=== PATIENT | female | born 1995 | race Caucasian/White ===

== ENCOUNTER 2024-06-06 13:44 | Outpatient (AMB) | payer OTHER, SELFPAY ==
--- NOTE | 2024-06-06 13:47 | MHC.OFFVIS ---
Vital Signs 06/06/24 13:49 Height 5 ft 4 in Weight 156 lb BMI 26.8 Handedness Right Intake Visit Reasons: New Pt - Right Index Finger Paronychia Intake Note: Kortney is a 28 year old right hand dominant female who presents today as a new patient for evaluation of her right index finger paronychia. Patient reports her cat scratched her right index finger on 05/31/24. Patient reports pain when she bends her finger. Allergies peach Allergy (Severe, Verified 06/06/24 13:55) lip swelling HPI HPI New Pt - Right Index Finger Paronychia: Details: Kortney is a 28 year old right hand dominant female who presents today as a new patient for evaluation of her right index finger paronychia. Patient reports her cat scratched her right index finger on 05/31/24. Patient denies any ongoing erythema at this time. Patient reports pain when she bends her finger. Denies numbness or tingling in the right hand. No other acute complaints or concerns at this time. [facility] Social History (Updated 06/06/24 @ 13:52 by KETURAH Reese) Current occupational status: employed Current occupation: right hand dominant Physical Exam Vital Signs: BMI result Body Mass Index 26.8 Extrem Other: Patient is alert, oriented, and in no acute distress. Neuro: Normal sensation of the tips of all digits of the right hand at this time Vascular: Cap refill brisk Pain: Patient reports some very mild tenderness to palpation about the distal aspect of the right index finger ROM: Patient was able to make a closed fist and extend all digits of the right hand fully, but reports some discomfort when doing so Skin: No lacerations or abrasions. General: Mild edema noted of the distal aspect of the right index finger No ecchymosis, erythema, or evidence of infection. Psych: Appears grossly normal Affect normal Attitude cooperative Assessment & Plan Assessment & Plan (1) Cat scratch of hand: Code(s): S60.519A - Abrasion of unspecified hand, initial encounter; W55.03XA - Scratched by cat, initial encounter Category: Medical Plan 1. Cat scratch of right index finger No evidence of ongoing infection Patient is educated about this condition Patient was educated about the typical recovery course At this time, patient was informed that I have no concerns for ongoing infection, and I do not feel antibiotics are necessary Patient was educated to rest, ice, elevate finger Patient was educated to return to our office any worsening signs or symptoms of infection Patient was amenable to this plan Patient will follow-up as needed with any acute concerns Coding Level of Care Code New Pt Level 3 (58272) Diagnoses Cat scratch of hand S60.519A; W55.03XA
[2024-06-06 13:49] VITALS: BMI 26.8
--- OUTSIDE RECORDS SUMMARY | 2024-06-06 16:24 | XMS_ITS | Patient Health Record ---
Author Organization [facility] Address [address] [place] [address] Care Team Providers Care Psychology Tech Name Role Phone FRANCESCO KNOWLES Primary Care Provider BAILEE Qureshi Unavailable [phone] Allergies Allergen (clinical drug ingredient) Drug/Non Drug Allergy documented on EMR Reaction Allergy Type Onset Date Status almond allergenic extract [place] (Diagnostic) throat swells Drug Allergy Active Reason For Referral No Information Medications Medication SIG (Take, Route, Frequency, Duration) Notes Start Date End Date Status Azithromycin 500 MG 2 tablets Orally onc e for 1 days 10/13/2018 Not-Taking Levonorgest-Eth Estrad 91-Day 0.1-0.02 & 0.01 MG 1 tablet Orally Once a day for 84 days 10/12/2018 Not-Taking Aviane 0.1-20 MG-MCG 1 tablet Orally Onc e a day for 90 days 05/31/2017 Not-Taking Social History Tobacco Use: Social History Observation Description Date Details (start date - stop date) Never Smoker NA - NA Tobacco Use/Smoking Question Answer Notes Are you a nonsmoker Alcohol Screen (Audit-C) Question Answer Notes Did you have a drink contain ing alcohol in the past year? Yes How often did you have a dri nk containing alcohol in the past year? 2 to 4 times a month (2 points) How many drinks did you have on a typical day when you were drinking in the past year? 1 or 2 drinks (0 point) How often did you have 6 or more drinks on one occasion in the past year? Never (0 point) Points 2 Interpretation Negative Tobacco use other than smoking: Question Answer Notes Are you an other tobacco user? No Problems Problem Type SNOMED Code ICD Code Onset Dates Problem Status W/U Status Risk Notes Problem Subacute and chronic vaginitis (N76.1) Active confirmed Plan Of Treatment Pending Test Test Name Order Date ONE SWAB 05/31/2017 ONE SWAB 08/02/2017 ANTI-HEPATITIS C 02/13/2020 HEP. B SURF. AG 02/13/2020 SYPHILIS TESTING 02/13/2020 HIV AB-AG 4TH GENERATION 02/13/2020 Insurance Providers Payer Name Payer Address Payer Phone Subscriber Number Group Number Insured Name Patient Relationship to Insured Coverage Start Date Coverage End Date [facility] [address] [address] [place] [address] [id number] JIMI MUNOZ Self - patient is the insured Medical (General) History Medical History History ICD Code Subacute and chronic vaginitis N76.1 Surgical History Surgery Date(Month/Year) TONSILLECTOMY 11/2016 [place] Teeth removed 04/2021 Ear tubes 2000 Adenoidectomy 2000
--- OUTSIDE RECORDS SUMMARY | 2024-06-06 16:24 | XMS_ITS | Data Portability ---
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 Plan of Treatment Reminders Order Date Submit Date Provider Last Modified By Organization Details Last Modified Time Details Appointments None recorded. Lab CBC w/ auto diff 2024 025 OBINNA [facility], [address], [address], 5 10:05:36 ferritin, serum or plasma 2024 025 OBINNA [facility], [address], [address], 5 10:05:40 iron + total iron-bindin g capacity (TIBC), serum 2024 025 OBINNA [facility], [address], [address], 5 10:05:38 TSH, ultra-sensi tive, serum 2024 025 OBINNA [facility], [address], [address], 5 10:05:39 lipid panel, serum 2024 025 OBINNA [facility], [address], [place], [address], 5 10:05:38 CMP, serum or plasma 2024 025 OBINNA [facility], [address], [place], [address], 5 10:05:37 CBC w/ auto diff 2021 022 OBINNA [facility] (Centralized Electronic Ordering - All Locations), Patient Can Go To The Location Of Their Choice, [id number] 16:06:42 amylase, serum or plasma 2020 021 OBINNA [facility] (Centralized Electronic Ordering - All Locations), Patient Can Go To The Location Of Their Choice, 20:10:37 CBC w/ auto diff 2020 021 OBINNA [facility] (Centralized Electronic Ordering - All Locations), Patient Can Go To The Location Of Their Choice, 19:49:41 CMP, serum or plasma 2020 021 OBINNA [facility] (Centralized Electronic Ordering - All Locations), Patient Can Go To The Location Of Their Choice, [id number] 20:10:39 Referral gynecologis t referral 2024 025 [email or web address] Not available 5 08:56:37 gastroenter ologist referral - recurrent nausea and vomitting with fatty foods. NO abd pain. 2020 021 [email or web address] Phil Gaona, [address] , [place], [address], 09:46:25 Procedures None recorded. Surgeries None recorded. Imaging None recorded. Medication Orders None recorded. Patient TargetsNo targets recorded. Patient Instructions Encounter Date Encounter Id Patient Instructions Last Modified By Organization Details Last Modified Time 12/01/2021 [id number] gastroesophageal reflux disease (GERD): care instructions Not available 12/01/2021 10:48:07 04/10/2024 [id number] heavy menstrual periods: care instructions Not available 04/10/2024 15:57:11 gastroesophageal reflux disease (GERD): care instructions Not available 04/10/2024 15:49:08 GERD diet education Not availa ble 04/10/2024 15:52:48 acid reflux diet Not available 04/10/2024 15:52:48 When You Want to Lose Weight: Care Instructions Not available 04/10/2024 15:47:58 Reason for Referral Student Advisor Referral for Nausea and vomiting recurrent nausea and vomitting with fatty foods. NO abd pain. Referring Physician: Deana Amaral, Internal Medicine, Encounter Date: 04/08/2020 Health Assistant Referral for Sc reening for malignant neoplasm of cervix Referring Physician: Deana Amaral, Internal Medicine, Encounter Date: 04/10/2024 Results Created Date Observation Date Name Description Value Unit Range Abnormal Flag Note LastModifiedBy Organization Detail LastModifiedTime 04/29/1904/29/2020 CBC w/ auto diff WBC 10.5 K/mm3 (4.0-1 1.0) Not Available [facility] (Centralized Electronic Ordering - All Locations) Patient Can Go To The Location Of Their Choice, [id number] 04/29/2020 19:49:41 04/29/1904/29/2020 CBC w/ auto diff RBC 5.05 M/mm3 (4.20- 5.40) Not Available [facility] (Centralized Electronic Ordering - All Locations) Patient Can Go To The Location Of Their Choice, [id number] 04/29/2020 19:49:41 04/29/1904/29/2020 CBC w/ auto diff HGB 14.9 gm/dL (11.7- 15.5) Not Available [facility] (Centralized Electronic Ordering - All Locations) Patient Can Go To The Location Of Their Choice, [id number] 04/29/2020 19:49:41 04/29/1904/29/2020 CBC w/ auto diff HCT 45.1 % (35.7- 45.8) Not Available [facility] (Centralized Electronic Ordering - All Locations) Patient Can Go To The Location Of Their Choice, 04/29/2020 19:49:41 04/29/1904/29/2020 CBC w/ auto diff MCV 89.3 fL (80.0- 100.0) Not Available [facility] (Centralized Electronic Ordering - All Locations) Patient Can Go To The Location Of Their Choice, 04/29/2020 19:49:41 04/29/1904/29/2020 CBC w/ auto diff MCH 29.5 pg (27.0- 34.0) Not Available [facility] (Centralized Electronic Ordering - All Locations) Patient Can Go To The Location Of Their Choice, 04/29/2020 19:49:41 04/29/1904/29/2020 CBC w/ auto diff MCHC 33.0 g/dL (33.0- 37.0) Not Available [facility] (Centralized Electronic Ordering - All Locations) Patient Can Go To The Location Of Their Choice, 04/29/2020 19:49:41 04/29/1904/29/2020 CBC w/ auto diff plt 264 K/mm3 (150-4 60) Not Available [facility] (Centralized Electronic Ordering - All Locations) Patient Can Go To The Location Of Their Choice, 04/29/2020 19:49:41 04/29/1904/29/2020 CBC w/ auto diff RDW-SD 36.3 fL (<47.0 ) Not Available [facility] (Centralized Electronic Ordering - All Locations) Patient Can Go To The Location Of Their Choice, 04/29/2020 19:49:41 04/29/1904/29/2020 CBC w/ auto diff MPV 11.0 fL (9.4-1 2.4) Not Available [facility] (Centralized Electronic Ordering - All Locations) Patient Can Go To The Location Of Their Choice, 04/29/2020 19:49:41 04/29/1904/29/2020 CBC w/ auto diff automated NRBC 0.0 #/100 _WBC' s Not Available [facility] (Centralized Electronic Ordering - All Locations) Patient Can Go To The Location Of Their Choice, 04/29/2020 19:49:41 04/29/1904/29/2020 CBC w/ auto diff abs. NRBC 0.0 K/mm3 Not Available [facility] (Centralized Electronic Ordering - All Locations) Patient Can Go To The Location Of Their Choice, 04/29/2020 19:49:41 04/29/1904/29/2020 CBC w/ auto diff neut # 7.0 K/mm3 (1.3-7 .0) Not Available [facility] (Centralized Electronic Ordering - All Locations) Patient Can Go To The Location Of Their Choice, 04/29/2020 19:49:41 04/29/1904/29/2020 CBC w/ auto diff lymph # 2.7 K/mm3 (0.8-3 .1) Not Available [facility] (Centralized Electronic Ordering - All Locations) Patient Can Go To The Location Of Their Choice, 04/29/2020 19:49:41 04/29/1904/29/2020 CBC w/ auto diff mono# 0.5 K/mm3 (0.4-0 .9) Not Available [facility] (Centralized Electronic Ordering - All Locations) Patient Can Go To The Location Of Their Choice, 04/29/2020 19:49:41 04/29/1904/29/2020 CBC w/ auto diff eo # 0.2 K/mm3 (0.0-0 .4) Not Available [facility] (Centralized Electronic Ordering - All Locations) Patient Can Go To The Location Of Their Choice, 04/29/2020 19:49:41 04/29/1904/29/2020 CBC w/ auto diff baso # 0.1 K/mm3 (0.0-0 .1) Not Available [facility] (Centralized Electronic Ordering - All Locations) Patient Can Go To The Location Of Their Choice, 04/29/2020 19:49:41 04/29/1904/29/2020 CBC w/ auto diff abs. imm gran 0.0 K/mm3 Not Available [facility] ([facility] Ordering - All Locations) Patient Can Go To The Location Of Their Choice, 04/29/2020 19:49:41 04/29/1904/29/2020 CBC w/ auto diff neut 66.8 % (44-76 ) Not Available [facility] (Centralized Electronic Ordering - All Locations) Patient Can Go To The Location Of Their Choice, 04/29/2020 19:49:41 04/29/1904/29/2020 CBC w/ auto diff lymph 25.5 % (15-43 ) Not Available [facility] (Centralized Electronic Ordering - All Locations) Patient Can Go To The Location Of Their Choice, 04/29/2020 19:49:41 04/29/1904/29/2020 CBC w/ auto diff monocyte 5.0 % (4.5-1 0.5) Not Available [facility] (Centralized Electronic Ordering - All Locations) Patient Can Go To The Location Of Their Choice, 04/29/2020 19:49:41 04/29/1904/29/2020 CBC w/ auto diff eo 1.7 % (0-6) Not Available [facility] (Centralized Electronic Ordering - All Locations) Patient Can Go To The Location Of Their Choice, 04/29/2020 19:49:41 04/29/1904/29/2020 CBC w/ auto diff baso 0.7 % (0-2) Not Available [facility] (Centralized Electronic Ordering - All Locations) Patient Can Go To The Location Of Their Choice, 04/29/2020 19:49:41 04/29/1904/29/2020 CBC w/ auto diff imm gran 0.3 % Not Available [facility] (Centralized Electronic Ordering - All Locations) Patient Can Go To The Location Of Their Choice, 04/29/2020 19:49:41 04/29/1904/29/2020 amyla se, serum or plasm a amylase 70 U/L (28-10 0) Not Available [facility] (Centralized Electronic Ordering - All Locations) Patient Can Go To The Location Of Their Choice, 04/29/2020 20:10:37 04/29/1904/29/2020 CMP, serum or plasm a glucose 92 mg/dL (70-99 ) Not Available [facility] (Centralized Electronic Ordering - All Locations) Patient Can Go To The Location Of Their Choice, 04/29/2020 20:10:38 04/29/1904/29/2020 CMP, serum or plasm a BUN 9 mg/dL (6-20) Not Available [facility] (Centralized Electronic Ordering - All Locations) Patient Can Go To The Location Of Their Choice, 04/29/2020 20:10:38 04/29/1904/29/2020 CMP, serum or plasm a creatinine 0.9 mg/dL (0.5-1 .0) Not Available [facility] (Centralized Electronic Ordering - All Locations) Patient Can Go To The Location Of Their Choice, 04/29/2020 20:10:38 04/29/1904/29/2020 CMP, serum or plasm a sodium 139 mmol/ L (133-1 45) Not Available [facility] (Centralized Electronic Ordering - All Locations) Patient Can Go To The Location Of Their Choice, 04/29/2020 20:10:38 04/29/1904/29/2020 CMP, serum or plasm a potassium 4.3 mmol/ L (3.6-5 .2) Not Available [facility] (Centralized Electronic Ordering - All Locations) Patient Can Go To The Location Of Their Choice, 04/29/2020 20:10:38 04/29/1904/29/2020 CMP, serum or plasm a chloride 103 mmol/ L (98-10 7) Not Available [facility] (Centralized Electronic Ordering - All Locations) Patient Can Go To The Location Of Their Choice, 04/29/2020 20:10:38 04/29/1904/29/2020 CMP, serum or plasm a bicarbonate 27 mmol/ L (22-29 ) Not Available [facility] (Centralized Electronic Ordering - All Locations) Patient Can Go To The Location Of Their Choice, 04/29/2020 20:10:38 04/29/1904/29/2020 CMP, serum or plasm a anion gap 9 (4-17) Not Available [facility] (Centralized Electronic Ordering - All Locations) Patient Can Go To The Location Of Their Choice, 04/29/2020 20:10:38 04/29/1904/29/2020 CMP, serum or plasm a albumin 4.5 gm/dL (3.4-4 .8) Not Available [facility] (Centralized Electronic Ordering - All Locations) Patient Can Go To The Location Of Their Choice, 04/29/2020 20:10:38 04/29/1904/29/2020 CMP, serum or plasm a calcium 9.4 mg/dL (8.6-1 0.5) Not Available [facility] (Centralized Electronic Ordering - All Locations) Patient Can Go To The Location Of Their Choice, 04/29/2020 20:10:38 04/29/19 21 04/29/2020 CMP, serum or plasm a bilirubin,to peyton 0.4 mg/dL (0-1.2 ) Not Available [facility] (Centralized Electronic Ordering - All Locations) Patient Can Go To The Location Of Their Choice, 04/29/2020 20:10:38 04/29/1904/29/2020 CMP, serum or plasm a total protein 7.4 gm/dL (6.2-8 .2) Not Available [facility] (Centralized Electronic Ordering - All Locations) Patient Can Go To The Location Of Their Choice, 04/29/2020 20:10:38 04/29/1904/29/2020 CMP, serum or plasm a Ag ratio 1.6 Not Available [facility] (Centralized Electronic Ordering - All Locations) Patient Can Go To The Location Of Their Choice, 04/29/2020 20:10:38 04/29/1904/29/2020 CMP, serum or plasm a AST 19 U/L (0-32) Not Available [facility] (Centralized Electronic Ordering - All Locations) Patient Can Go To The Location Of Their Choice, 04/29/2020 20:10:38 04/29/1904/29/2020 CMP, serum or plasm a alk phos 70 U/L (35-10 4) Not Available [facility] (Centralized Electronic Ordering - All Locations) Patient Can Go To The Location Of Their Choice, 04/29/2020 20:10:38 04/29/1904/29/2020 CMP, serum or plasm a ALT 26 U/L (0-33) Not Available [facility] (Centralized Electronic Ordering - All Locations) Patient Can Go To The Location Of Their Choice, 04/29/2020 20:10:38 04/29/1904/29/2020 CMP, serum or plasm a est GFR non 91 mL/mi n/1.7 3_M2 Creat inine based estim ated glome rular filtr ation rate (eGFR ) is calcu lated using the Chron ic Kidne y Disea se Epide miolo gy Colla borat ion (CKD- EPI). The CKD-E PI creat inine equat ion has not been valid ated in child gene (<18 years ), pregn ant women or in some racia l or ethni c subgr oups other than Cauca sians and Afric an Ameri cans. Not Available [facility] (Centralized Electronic Ordering - All Locations) Patient Can Go To The Location Of Their Choice, 04/29/2020 20:10:38 04/29/19 21 04/29/2020 CMP, serum or plasm a est GFR 105 mL/mi n/1.7 3_M2 Creat inine based estim ated glome rular filtr ation rate (eGFR ) is calcu lated using the Chron ic Kidne y Disea se Epide miolo gy Colla borat ion (CKD- EPI). The CKD-E PI creat inine equat ion has not been valid ated in child gene (<18 years ), pregn ant women or in some racia l or ethni c subgr oups other than Cauca sians and Afric an Ameri cans. Not Available [facility] (Centralized Electronic Ordering - All Locations) Patient Can Go To The Location Of Their Choice, 04/29/2020 20:10:38 12/02/19 22 12/01/2021 COMPL ETE CBC WITH DIFF WBC 6.1 K/mm3 (4.0-1 1.0) Not Available [facility] (Centralized Electronic Ordering - All Locations) Patient Can Go To The Location Of Their Choice, 12/01/2021 16:06:42 12/02/19 22 12/01/2021 COMPL ETE CBC WITH DIFF RBC 4.54 M/mm3 (4.20- 5.40) Not Available [facility] (Centralized Electronic Ordering - All Locations) Patient Can Go To The Location Of Their Choice, 12/01/2021 16:06:42 12/02/19 22 12/01/2021 COMPL ETE CBC WITH DIFF HGB 13.7 gm/dL (11.7- 15.5) Not Available [facility] (Centralized Electronic Ordering - All Locations) Patient Can Go To The Location Of Their Choice, 12/01/2021 16:06:42 12/02/1912/01/2021 COMPL ETE CBC WITH DIFF HCT 41.0 % (35.7- 45.8) Not Available [facility] (Centralized Electronic Ordering - All Locations) Patient Can Go To The Location Of Their Choice, 12/01/2021 16:06:42 12/02/19 22 12/01/2021 COMPL ETE CBC WITH DIFF MCV 90.3 fL (80.0- 100.0) Not Available [facility] (Centralized Electronic Ordering - All Locations) Patient Can Go To The Location Of Their Choice, 12/01/2021 16:06:42 12/02/1912/01/2021 COMPL ETE CBC WITH DIFF MCH 30.2 pg (27.0- 34.0) Not Available [facility] (Centralized Electronic Ordering - All Locations) Patient Can Go To The Location Of Their Choice, 12/01/2021 16:06:42 12/02/19 22 12/01/2021 COMPL ETE CBC WITH DIFF MCHC 33.4 g/dL (33.0- 37.0) Not Available [facility] (Centralized Electronic Ordering - All Locations) Patient Can Go To The Location Of Their Choice, 12/01/2021 16:06:42 12/02/19 22 12/01/2021 COMPL ETE CBC WITH DIFF plt 297 K/mm3 (150-4 60) Not Available [facility] (Centralized Electronic Ordering - All Locations) Patient Can Go To The Location Of Their Choice, 12/01/2021 16:06:42 12/02/1912/01/2021 COMPL ETE CBC WITH DIFF RDW-SD 38.6 fL (<47.0 ) Not Available [facility] (Centralized Electronic Ordering - All Locations) Patient Can Go To The Location Of Their Choice, 12/01/2021 16:06:42 12/02/19 22 12/01/2021 COMPL ETE CBC WITH DIFF MPV 11.1 fL (9.4-1 2.4) Not Available [facility] (Centralized Electronic Ordering - All Locations) Patient Can Go To The Location Of Their Choice, 12/01/2021 16:06:42 12/02/19 22 12/01/2021 COMPL ETE CBC WITH DIFF automated NRBC 0.0 #/100 _WBC' s Not Available [facility] (Centralized Electronic Ordering - All Locations) Patient Can Go To The Location Of Their Choice, 12/01/2021 16:06:42 12/02/19 22 12/01/2021 COMPL ETE CBC WITH DIFF abs. NRBC 0.0 K/mm3 Not Available [facility] (Centralized Electronic Ordering - All Locations) Patient Can Go To The Location Of Their Choice, 12/01/2021 16:06:42 12/02/1912/01/2021 COMPL ETE CBC WITH DIFF neut # 3.3 K/mm3 (1.3-7 .0) Not Available [facility] (Centralized Electronic Ordering - All Locations) Patient Can Go To The Location Of Their Choice, 12/01/2021 16:06:42 12/02/19 22 12/01/2021 COMPL ETE CBC WITH DIFF lymph # 2.2 K/mm3 (0.8-3 .1) Not Available [facility] (Centralized Electronic Ordering - All Locations) Patient Can Go To The Location Of Their Choice, 12/01/2021 16:06:42 12/02/19 22 12/01/2021 COMPL ETE CBC WITH DIFF mono# 0.4 K/mm3 (0.4-0 .9) Not Available [facility] (Centralized Electronic Ordering - All Locations) Patient Can Go To The Location Of Their Choice, 12/01/2021 16:06:42 12/02/19 22 12/01/2021 COMPL ETE CBC WITH DIFF eo # 0.2 K/mm3 (0.0-0 .4) Not Available [facility] (Centralized Electronic Ordering - All Locations) Patient Can Go To The Location Of Their Choice, 12/01/2021 16:06:42 12/02/1912/01/2021 COMPL ETE CBC WITH DIFF baso # 0.0 K/mm3 (0.0-0 .1) Not Available [facility] (Centralized Electronic Ordering - All Locations) Patient Can Go To The Location Of Their Choice, 12/01/2021 16:06:42 12/02/19 22 12/01/2021 COMPL ETE CBC WITH DIFF abs. imm gran 0.0 K/mm3 Not Available [facility] ([facility] Order[facility] - All Locations) Patient Can Go To The Location Of Their Choice, 12/01/2021 16:06:42 12/02/19 22 12/01/2021 COMPL ETE CBC WITH DIFF neut 54.4 % (44-76 ) Not Available [facility] (Centralized Electronic Ordering - All Locations) Patient Can Go To The Location Of Their Choice, 12/01/2021 16:06:42 12/02/19 22 12/01/2021 COMPL ETE CBC WITH DIFF lymph 35.3 % (15-43 ) Not Available [facility] (Centralized Electronic Ordering - All Locations) Patient Can Go To The Location Of Their Choice, 12/01/2021 16:06:42 12/02/19 22 12/01/2021 COMPL ETE CBC WITH DIFF monocyte 6.6 % (4.5-1 0.5) Not Available [facility] (Centralized Electronic Ordering - All Locations) Patient Can Go To The Location Of Their Choice, 12/01/2021 16:06:42 12/02/19 22 12/01/2021 COMPL ETE CBC WITH DIFF eo 2.8 % (0-6) Not Available [facility] (Centralized Electronic Ordering - All Locations) Patient Can Go To The Location Of Their Choice, 12/01/2021 16:06:42 12/02/19 22 12/01/2021 COMPL ETE CBC WITH DIFF baso 0.7 % (0-2) Not Available [facility] (Centralized Electronic Ordering - All Locations) Patient Can Go To The Location Of Their Choice, 12/01/2021 16:06:42 12/02/19 22 12/01/2021 COMPL ETE CBC WITH DIFF imm gran 0.2 % Not Available [facility] (Centralized Electronic Ordering - All Locations) Patient Can Go To The Location Of Their Choice, 12/01/2021 16:06:42 12/02/19 22 12/02/2021 RUBEL LA IGG ANTIB CARRIE rubella IgG antibody POSIT HEAVEN Indic ates prior expos ure or immun ity. This test was perfo rmed by the [employer] VIDAS 3 immun oassa y syste m. Not Available [facility] (Centralized Electronic Ordering - All Locations) Patient Can Go To The Location Of Their Choice, 12/02/2021 08:08:45 12/02/19 22 12/02/2021 RUBEO LA AB IGG rubeola Ab IgG POSIT HEAVEN Indic ates prior expos ure or immun ity. This test was perfo rmed by the [employer] VIDAS 3 immun oassa y syste m. Not Available [facility] (Centralized Electronic Ordering - All Locations) Patient Can Go To The Location Of Their Choice, 12/02/2021 10:37:08 12/02/1912/02/2021 ANTI- HBS QUANT anti-hbs quant 46.19 mIU/m L >11.9 9 mIU/m L Indic ates prior expos ure or immun ity This test was perfo rmed on the [employer] immun oassa y syste m. Not Available [facility] (Centralized Electronic Ordering - All Locations) Patient Can Go To The Location Of Their Choice, [id number] 12/02/2021 11:01:27 12/02/1912/02/2021 MUMPS IGG ANTIB CARRIE mumps Ab IgG POSIT HEAVEN Indic ates prior expos ure or immun ity. This test was perfo rmed by the [employer] VIDAS 3 immun oassa y syste m. Not Available [facility] (Centralized Electronic Ordering - All Locations) Patient Can Go To The Location Of Their Choice, 12/02/2021 11:24:10 12/02/1912/02/2021 VARIC MINDI IGG ANTIB CARRIE varicella IgG antibody EQUIV OCAL Consi maya repea t testi ng on a fresh speci men in a recom david d inter kimani of 2 to 3 weeks . Patie nts with a repea t equiv ocal resul t shoul d be consi dered susce ptibl e unles s they have other evide nce of immun ity or subse quent testi ng indic ates immun ity. This test was perfo rmed by the [employer] VIDAS 3 immun oassa y syste m. Not Available [facility] (Centralized Electronic Ordering - All Locations) Patient Can Go To The Location Of Their Choice, 12/02/2021 14:41:02 12/02/1912/07/2021 QUANT IFERO N 1 TUBE qtb gold plus result NEGATI VE Refer ence range : NEGAT HEAVEN (NOTE ) Negat heaven test resul t. M. tuber culos is compl ex infec tion unlik usama. Not Available [facility] (Centralized Electronic Ordering - All Locations) Patient Can Go To The Location Of Their Choice, 12/07/2021 06:46:18 12/02/1912/07/2021 QUANT IFERO N 1 TUBE nil result 0.04 Unit: IU/mL Not Available [facility] (Centralized Electronic Ordering - All Locations) Patient Can Go To The Location Of Their Choice, 12/07/2021 06:46:18 12/02/19 22 12/07/2021 QUANT IFERO N 1 TUBE mitogen minus nil result >10.00 Unit: IU/mL Not Available [facility] (Centralized Electronic Ordering - All Locations) Patient Can Go To The Location Of Their Choice, 12/07/2021 06:46:18 12/02/1912/07/2021 QUANT IFERO N 1 TUBE TB1 Ag minus nil result 0.00 Unit: IU/mL Not Available [facility] (Centralized Electronic Ordering - All Locations) Patient Can Go To The Location Of Their Choice, 12/07/2021 06:46:18 12/02/1912/07/2021 QUANT IFERO N 1 TUBE TB2 Ag minus nil result 0.00 Unit: IU/mL (NOTE ) = The Nil tube value refle cts the backg round inter feron gamma immun e respo nse of the patie nt's blood sampl e. This value has been subtr acted from the patie nt's displ ayed TB and Mitog en resul ts. = Lower than expec siddharth resul ts with the Mitog en tube preve nt false -nega tive Quant ifero n readi ngs by detec ting a patie nt with a poten tial immun e suppr essiv e condi tion and/o r subop timal pre-a nalyt ical speci men handl ing. = The TB1 Antig en tube is coate d with the M. kalin rossios is-sp ecifi c antig ens desig nery to elici t respo nses from TB antig en prime d CD4+ helpe r T-lym phocy farzad. = The TB2 Antig en tube is coate d with the M. kalin rossios is-sp ecifi c antig ens desig nery to elici t respo nses from TB antig en prime d CD4+ helpe r and CD8+ cytot oxic T-lym phocy farzad. = For addit ional infor matio n, pleas e refer to https ://ed ucati on.qu Cost Effective Data/f aq/FA Q204 (This link is being provi ded for infor matio nal/ educa linda l purpo ses only. ) = Test Perfo rmed by: [employer], [address], [place]. [address] . Labor atory Direc tor: Troy machado MD. Not Available [facility] (Centralized Electronic Ordering - All Locations) Patient Can Go To The Location Of Their Choice, 12/07/2021 06:46:18 02/11/2002/13/2022 QUANT IFERO N 1 TUBE qtb gold plus result NEGATI VE Refer ence range : NEGAT HEAVEN (NOTE ) Negat heaven test resul t. M. kalin mccabe is compl ex infec tion unlik usama. Not Available [facility] (Centralized Electronic Ordering - All Locations) Patient Can Go To The Location Of Their Choice, 02/13/2022 22:07:10 02/11/20 22 02/13/2022 QUANT IFERO N 1 TUBE nil result 0.04 Unit: IU/mL Not Available [facility] (Centralized Electronic Ordering - All Locations) Patient Can Go To The Location Of Their Choice, 02/13/2022 22:07:10 02/11/20 22 02/13/2022 QUANT IFERO N 1 TUBE mitogen minus nil result >10.00 Unit: IU/mL Not Available [facility] (Centralized Electronic Ordering - All Locations) Patient Can Go To The Location Of Their Choice, [id number] 02/13/2022 22:07:10 02/11/20 22 02/13/2022 QUANT IFERO N 1 TUBE TB1 Ag minus nil result 0.00 Unit: IU/mL Not Available [facility] (Centralized Electronic Ordering - All Locations) Patient Can Go To The Location Of Their Choice, [id number] 02/13/2022 22:07:10 02/11/20 22 02/13/2022 QUANT IFERO N 1 TUBE TB2 Ag minus nil result 0.00 Unit: IU/mL (NOTE ) = The Nil tube value refle cts the backg round inter feron gamma immun e respo nse of the patie nt's blood sampl e. This value has been subtr acted from the patie nt's displ ayed TB and Mitog en resul ts. = Lower than expec siddharth resul ts with the Mitog en tube preve nt false -nega tive Quant ifero n readi ngs by detec ting a patie nt with a poten tial immun e suppr essiv e condi tion and/o r subop timal pre-a nalyt ical speci men handl ing. = The TB1 Antig en tube is coate d with the M. tuber culos is-sp ecifi c antig ens desig nery to elici t respo nses from TB antig en prime d CD4+ helpe r T-lym phocy farzad. = The TB2 Antig en tube is coate d with the M. tuber culos is-sp ecifi c antig ens desig nery to elici t respo nses from TB antig en prime d CD4+ helpe r and CD8+ cytot oxic T-lym phocy farzad. = For addit ional infor jose d eng, pleas e refer to https ://ed ucati on.qu estdi [employer]. com/f aq/FA Q204 (This link is being provi ded for infor jose d castillo/ educa linda l purpo ses only. ) = Test Perfo rmed by: [facility], [address], [place]. [address] . Labor atory Direc tor: Troy machado MD. Not Available [facility] (Centralized Electronic Ordering - All Locations) Patient Can Go To The Location Of Their Choice, [id number] 02/13/2022 22:07:10 04/14/1904/15/2024 CBC WITH DIFFE RENTI AL/PL ATELE T WBC 8.3 x10e3 /uL 3.4-10 .8 normal Not Available [facility] ([facility]) [address] [facility], [place], [address], 04/15/2024 10:05:36 04/14/19 25 04/15/2024 CBC WITH DIFFE RENTI AL/PL ATELE T RBC 5.00 x10e6 /uL 3.77-5 .28 normal Not Available [facility] ([facility]) [address] [facility], [place], [address], 04/15/2024 10:05:36 04/14/19 25 04/15/2024 CBC WITH DIFFE RENTI AL/PL ATELE T hemoglobin 14.7 g/dL 11.1-1 5.9 normal Not Available [facility] ([facility]) [address] [facility], [place], [address], 04/15/2024 10:05:36 04/14/19 25 04/15/2024 CBC WITH DIFFE RENTI AL/PL ATELE T hematocrit 45.2 % 34.0-4 6.6 normal Not Available [facility] ([facility]) [address] [place], [address], 04/15/2024 10:05:36 04/14/19 25 04/15/2024 CBC WITH DIFFE RENTI AL/PL ATELE T MCV 90 fL 79-97 normal Not Available [facility] ([facility]) [address] [place], [address], 04/15/2024 10:05:36 04/14/19 25 04/15/2024 CBC WITH DIFFE RENTI AL/PL ATELE T MCH 29.4 pg 26.6-3 3.0 normal Not Available [facility] ([facility]) [address] [facility], [place], [address], 04/15/2024 10:05:36 04/14/19 25 04/15/2024 CBC WITH DIFFE RENTI AL/PL ATELE T MCHC 32.5 g/dL 31.5-3 5.7 normal Not Available [facility] ([facility]) [address] [facility], [place], [address], 04/15/2024 10:05:36 04/14/19 25 04/15/2024 CBC WITH DIFFE RENTI AL/PL ATELE T RDW 11.5 % 11.7-1 5.4 below low normal Not Available [facility] ([facility]) [address] [facility], [place], [address], 04/15/2024 10:05:36 04/14/19 25 04/15/2024 CBC WITH DIFFE RENTI AL/PL ATELE T platelets 320 x10e3 /uL 150-45 0 normal Not Available [facility] ([facility]) [address] [facility], [place], [address], 04/15/2024 10:05:36 04/14/19 25 04/15/2024 CBC WITH DIFFE RENTI AL/PL ATELE T neutrophils 57 % not estab. normal Not Available [facility] ([facility]) [address] [facility], [place], [address], 04/15/2024 10:05:36 04/14/19 25 04/15/2024 CBC WITH DIFFE RENTI AL/PL ATELE T lymphs 30 % not estab. normal Not Available [facility] ([facility]) [address] [place], [address], 04/15/2024 10:05:36 04/14/19 25 04/15/2024 CBC WITH DIFFE RENTI AL/PL ATELE T monocytes 7 % not estab. normal Not Available [facility] ([facility]) [address] [facility], [place], [address], 04/15/2024 10:05:36 04/14/19 25 04/15/2024 CBC WITH DIFFE RENTI AL/PL ATELE T eos 4 % not estab. normal Not Available [facility] ([facility]) [address] [facility], [place], [address], 04/15/2024 10:05:36 04/14/19 25 04/15/2024 CBC WITH DIFFE RENTI AL/PL ATELE T basos 1 % not estab. normal Not Available [facility] ([facility]) [address] [facility], [place], [address], 04/15/2024 10:05:36 04/14/19 25 04/15/2024 CBC WITH DIFFE RENTI AL/PL ATELE T immature cells ASSEMBLER SEAT Not Available [facility] ([facility]) [address] [facility], [place], [address], 04/15/2024 10:05:36 04/14/19 25 04/15/2024 CBC WITH DIFFE RENTI AL/PL ATELE T neutrophils (absolute) 4.7 x10e3 /uL 1.4-7. 0 normal Not Available [facility] ([facility]) [address] [place], [address], 04/15/2024 10:05:36 04/14/19 25 04/15/2024 CBC WITH DIFFE RENTI AL/PL ATELE T lymphs (absolute) 2.5 x10e3 /uL 0.7-3. 1 normal Not Available [facility] ([facility]) [address] [place], [address], 04/15/2024 10:05:36 04/14/19 25 04/15/2024 CBC WITH DIFFE RENTI AL/PL ATELE T monocytes(ab solute) 0.6 x10e3 /uL 0.1-0. 9 normal Not Available [facility] ([facility]) [address] [facility], [place], [address], 04/15/2024 10:05:36 04/14/19 25 04/15/2024 CBC WITH DIFFE RENTI AL/PL ATELE T eos (absolute) 0.3 x10e3 /uL 0.0-0. 4 normal Not Available [facility] ([facility]) [address] [facility], [place], [address], 04/15/2024 10:05:36 04/14/19 25 04/15/2024 CBC WITH DIFFE RENTI AL/PL ATELE T baso (absolute) 0.1 x10e3 /uL 0.0-0. 2 normal Not Available [facility] ([facility]) [address] [facility], [place], [address], 04/15/2024 10:05:36 04/14/19 25 04/15/2024 CBC WITH DIFFE RENTI AL/PL ATELE T immature granulocytes 1 % not estab. Not Available [facility] ([facility]) [address] [facility], [place], [address], 04/15/2024 10:05:36 04/14/19 25 04/15/2024 CBC WITH DIFFE RENTI AL/PL ATELE T immature grans (abs) 0.1 x10e3 /uL 0.0-0. 1 Not Available [facility] ([facility]) [address] [facility], [place], [address], 04/15/2024 10:05:36 04/14/19 25 04/15/2024 CBC WITH DIFFE RENTI AL/PL ATELE T NRBC ASSEMBLER SEAT Not Available [facility] ([facility]) [address] [place], [address], 04/15/2024 10:05:36 04/14/19 25 04/15/2024 CBC WITH DIFFE RENTI AL/PL ATELE T hematology comments: ASSEMBLER SEAT Not Available [facility] ([facility]) [address] [place], [id number], 04/15/2024 10:05:36 04/14/19 25 04/15/2024 COMP. METAB OLIC PANEL (14) glucose 90 mg/dL 70-99 normal Not Available [facility] ([facility]) [address] [place], [id number], 04/15/2024 10:05:37 04/14/19 25 04/15/2024 COMP. METAB OLIC PANEL (14) BUN 7 mg/dL 6-20 normal Not Available [facility] ([facility]) [address] [facility] [place], [id number], 04/15/2024 10:05:37 04/14/19 25 04/15/2024 COMP. METAB OLIC PANEL (14) creatinine 0.73 mg/dL 0.57-1 .00 normal Not Available [facility] ([facility]) [address] [facility] [place], [address], 04/15/2024 10:05:37 04/14/19 25 04/15/2024 COMP. METAB OLIC PANEL (14) eGFR 116 mL/mi n/1.7 3 >59 normal Not Available [facility] ([facility]) [address] [facility] [place], [address], 04/15/2024 10:05:37 04/14/19 25 04/15/2024 COMP. METAB OLIC PANEL (14) BUN/creatini ne ratio 10 9-23 normal Not Available [facility] ([facility]) [address] [facility] [place], [address], 04/15/2024 10:05:37 04/14/19 25 04/15/2024 COMP. METAB OLIC PANEL (14) sodium 138 mmol/ L 134-14 4 normal Not Available [facility] ([facility]) [address] [facility] [place], [address], 04/15/2024 10:05:37 04/14/19 25 04/15/2024 COMP. METAB OLIC PANEL (14) potassium 4.4 mmol/ L 3.5-5. 2 normal Not Available [facility] ([facility]) [address] [facility], [place], [address], 04/15/2024 10:05:37 04/14/19 25 04/15/2024 COMP. METAB OLIC PANEL (14) chloride 104 mmol/ L 96-106 normal Not Available [facility] ([facility]) [address] [facility], [place], [address], 04/15/2024 10:05:37 04/14/19 25 04/15/2024 COMP. METAB OLIC PANEL (14) carbon dioxide, total 22 mmol/ L 20-29 normal Not Available [facility] ([facility]) [address] [facility], [place], [address], 04/15/2024 10:05:37 04/14/19 25 04/15/2024 COMP. METAB OLIC PANEL (14) calcium 9.4 mg/dL 8.7-10 .2 normal Not Available [facility] ([facility]) [address] [facility], [place], [address], 04/15/2024 10:05:37 04/14/19 25 04/15/2024 COMP. METAB OLIC PANEL (14) protein, total 7.1 g/dL 6.0-8. 5 normal Not Available [facility] ([facility]) [address] [place], [address], 04/15/2024 10:05:37 04/14/19 25 04/15/2024 COMP. METAB OLIC PANEL (14) albumin 4.6 g/dL 4.0-5. 0 normal Not Available [facility] ([facility]) [address] [facility], [place], [address], 04/15/2024 10:05:37 04/14/19 25 04/15/2024 COMP. METAB OLIC PANEL (14) globulin, total 2.5 g/dL 1.5-4. 5 Not Available [facility] ([facility]) [address] [facility] [place], [address], 04/15/2024 10:05:37 04/14/19 25 04/15/2024 COMP. METAB OLIC PANEL (14) bilirubin, total 0.6 mg/dL 0.0-1. 2 normal Not Available [facility] ([facility]) [address] [facility] [place], [address], 04/15/2024 10:05:37 04/14/19 25 04/15/2024 COMP. METAB OLIC PANEL (14) alkaline phosphatase 88 IU/L 44-121 normal Not Available [facility] ([facility]) [address] [facility] [place], [address], 04/15/2024 10:05:37 04/14/19 25 04/15/2024 COMP. METAB OLIC PANEL (14) AST (SGOT) 19 IU/L 0-40 normal Not Available [facility] ([facility]) [address] [place], [address], 04/15/2024 10:05:37 04/14/19 25 04/15/2024 COMP. METAB OLIC PANEL (14) ALT (SGPT) 13 IU/L 0-32 normal Not Available [facility] ([facility]) [address] [place], [address], 04/15/2024 10:05:37 04/14/19 25 04/15/2024 LIPID PANEL cholesterol, total 134 mg/dL 100-19 9 normal Not Available [facility] ([facility]) [address] [place], [address], 04/15/2024 10:05:38 04/14/19 25 04/15/2024 LIPID PANEL triglyceride s 104 mg/dL 0-149 normal Not Available [facility] ([facility]) [address] [place], [address], 04/15/2024 10:05:38 04/14/19 25 04/15/2024 LIPID PANEL HDL cholesterol 38 mg/dL >39 below low normal Not Available [facility] ([facility]) [address] [place], [address], 04/15/2024 10:05:38 04/14/19 25 04/15/2024 LIPID PANEL VLDL cholesterol cate 19 mg/dL 5-40 Not Available [facility] ([facility]) [address] [place], [address], 04/15/2024 10:05:38 04/14/19 25 04/15/2024 LIPID PANEL LDL chol calc ([facility]) 77 mg/dL 0-99 Not Available [facility] ([facility]) [address] [place], [address], 04/15/2024 10:05:38 04/14/19 25 04/15/2024 LIPID PANEL LDL calc comment: ASSEMBLER SEAT Not Available [facility] ([facility]) [address] [place], [address], 04/15/2024 10:05:38 04/14/19 25 04/15/2024 IRON AND TIBC iron bind.cap.(TI BC) 370 ug/dL 250-45 0 normal Not Available [facility] ([facility]) [address] [place], [address], 04/15/2024 10:05:38 04/14/19 25 04/15/2024 IRON AND TIBC UIBC 244 ug/dL 131-42 5 normal Not Available [facility] ([facility]) [address] [place], [address], 04/15/2024 10:05:38 04/14/19 25 04/15/2024 IRON AND TIBC iron 126 ug/dL 27-159 normal Not Available [facility] ([facility]) [address] [place], [address], 04/15/2024 10:05:38 04/14/19 25 04/15/2024 IRON AND TIBC iron saturation 34 % 15-55 normal Not Available [facility] ([facility]) [address] [place], [address], 04/15/2024 10:05:38 04/14/19 25 04/15/2024 TSH RFX ON ABNOR MAL TO FREE T4 TSH 1.230 uIU/m L 0.450- 4.500 normal Not Available [facility] ([facility]) [address] [place], [address], 04/15/2024 10:05:39 04/14/19 25 04/15/2024 MICAH TIN ferritin 57 NG/mL 15-150 normal Not Available [facility] ([facility]) [address] [place], [address], 04/15/2024 10:05:40 Result Notes None recorded. Problems Name Problem SNOMED Code Status Onset Date Resolution Date Notes Provider Name and Address Organization Details Recorded Time Arthritis of right knee 8348083890899 102 Active 2016 Farnk Conner [place] [facility], [facility] 2 09:49:52 Menorrhagia 002754094 Active 2021 Deana Amaral PA-C [address] [address], [place], [address], [facility] 2 10:47:41 Gastroesoph ageal reflux disease 645722988 Active 2021 Deana Amaral PA-C [address] [address], [place], [phone], [facility] 2 10:48:02 Body mass index 25-29 - overweight 459113718 Active 2024 Deana Amaral PA-C [address] [address], [place], [address], [facility] 5 15:49:00 Problem Notes None recorded. Procedures Surgical History Date Name Laterality Status Provider Name and Address Organization Details Recorded Time 04/04/19 22 extraction of wisdom tooth completed Frank Conner MA [facility] 12/01/2021 10:01:05 10/13/19 19 Date of Last Pap Smear completed Frank Conner MA [facility] 12/01/2021 09:59:08 11/18/19 17 Removal of tonsils completed Lynda arenas MA [facility] 11/26/2016 12:57:35 04/04/19 17 Tonsillectomy completed Natty Do LPN [facility] 04/10/2024 15:34:47 Myringoplasty completed Parviz Balbuena MD [address] [facility] [address], [place], [address], [facility] 10/23/2016 09:01:35 Adenoidectomy completed Natty Do LPN [facility] 04/10/2024 15:34:47 Imaging Results None recorded. Procedure Notes None recorded. Medical Equipment None Reported. Allergies Allergen ID Allergen Name Allergen Category Reaction Reaction Severity Criticality Documentation Date Start Date Code Code System Note Provider Name and Address Organization Details Recorded Time 84649 No known allergy (situatio n) Not available Not available Not available Not available 10/24/2020 61154 6003 SNOMED Kristaheidy porter, [facility] 14:21:03 No known drug allergies Medications Name Sig Start Date Stop Date Status Note LastModified by Organization Details LastModified Time cefuroxime axetil 250 mg tablet 10/23 completed Not Available Not Available Not Available azithromyci n 250 mg tablet 10/23 completed Not Available Not Available Not Available fluconazole 150 mg tablet 09/23 completed Not Available Not Available Not Available amoxicillin 600 mg-potassiu m clavulanate 42.9 mg/5 mL oral suspension 10/23 completed Not Available Not Available Not Available hydrocodone 5 mg-acetamin ophen 325 mg tablet TAKE 1 TABLET BY MOUTH EVERY 6 HOURS NEEDED FOR PAIN 12/01 completed Not Available Not Available Not Available oxycodone 5 mg/5 mL oral solution 09/23 completed Not Available Not Available Not Available Zyrtec 10 mg tablet Take 1 tablet every day by oral route. active Not Available Not Available No t Available triamcinolo ne acetonide 0.1 % topical cream APPLY A THIN LAYER TO THE AFFECTED AREA(S) BY TOPICAL ROUTE 2 TIMES PER DAY 09/23 completed Not Available Not Available Not Available amoxicillin 875 mg tablet TAKE 1 TABLET BY MOUTH TWICE A DAY X4 DAYS,STAR TING THE DAY OF SURGERY 12/01 completed Not Available Not Available Not Available amitriptyli ne 10 mg tablet Take 2 tablets every day by oral route as directed for 30 days. 11/26 completed Not Available Not Available Not Available cephalexin 500 mg capsule 10/23 completed Not Available Not Available Not Available polymyxin B sulfate 10,000 unit-trimet hoprim 1 mg/mL eye drops INSTILL ONE DROP INTO THE LEFT EYE 4X DAILY FOR 7 DAYS 12/01 completed Not Available Not Available Not Available montelukast 10 mg tablet TAKE 1 TABLET BY MOUTH EVERY DAY 12/01 completed Not Available Not Available Not Available ibuprofen 600 mg tablet PLEASE SEE ATTACHED FOR DETAILED DIRECTION S 12/01 completed Not Available Not Available Not Available cefuroxime axetil 500 mg tablet 10/23 completed Not Available Not Available Not Available methylpredn isolone 4 mg tablets in a dose pack TAKE 6 TABLETS ON DAY 1 DIRECTED ON PACKAGE AND DECREASE BY 1 TAB EACH DAY FOR A TOTAL OF 6 DAYS 12/01 completed Not Available Not Available Not Available azithromyci n 500 mg tablet active Not Available Not Available Not Available FE 04/23 (28) 1 mg-20 mcg (21)/75 mg (7) tablet Take 1 tablet every day by oral route for 84 days. 09/23 completed Not Available Not Available Not Available chlorhexidi ne gluconate 0.12 % mouthwash PLEASE SEE ATTACHED FOR DETAILED DIRECTION S 12/01 completed Not Available Not Available Not Available Sronyx 0.1 mg-20 mcg tablet 04/06 completed Not Available Not Available Not Available L norgest/E estradiol-E estrad 0.1 mg-20 mcg (84)/10 mcg (7) tabs,3mos TAKE 1 TABLET BY MOUTH EVERY DAY FOR 84 DAYS 04/10 completed Not Available Not Available Not Available Vitals Date Recorded Body height Body mass index (BMI) Body weight Heart rate Body temperature Oxygen saturation Oxygen saturation in Arterial blood by Pulse oximetry Systolic blood pressure Diastolic blood pressure Provider Name and Address Organization Details Last Updated DateTime 8 162.56 cm 20.3 kg/m2 97169.7 g 94 /min 99.3 [degF] 98 % 98 % 125 mm[Hg] 80 mm[Hg] Elisabet Keecarmen [facility] 8 14:05:53 Date Recorded Body height Body mass index (BMI) Body weight Heart rate Oxygen saturation Oxygen saturation in Arterial blood by Pulse oximetry Body temperature Systolic blood pressure Diastolic blood pressure Provider Name and Address Organization Details Last Updated DateTime 0 162.56 cm 20.6 kg/m2 51946.0 8 g 74 /min 97 % 97 % 97.1 [degF] 96 mm[Hg] 62 mm[Hg] Ambrocio Munoz [facility] 0 13:17:08 Date Recorded Heart rate Oxygen saturation Oxygen saturation in Arterial blood by Pulse oximetry Body weight Body mass index (BMI) Body height Body temperature Systolic blood pressure Diastolic blood pressure Provider Name and Address Organization Details Last Updated DateTime 1 78 /min 98 % 98 % 43641.6 g 22.5 kg/m2 162.56 cm 98.78 [degF] 117 mm[Hg] 55 mm[Hg] Yasemin Barakat MA [facility] 1 09:27:13 Date Recorded Body height Body mass index (BMI) Body weight Heart rate Oxygen saturation Oxygen saturation in Arterial blood by Pulse oximetry Body temperature Systolic blood pressure Diastolic blood pressure Provider Name and Address Organization Details Last Updated DateTime 2 162.56 cm 23.6 kg/m2 11554.9 5 g 77 /min 98 % 98 % 98.42 [degF] 102 mm[Hg] 64 mm[Hg] Frank Conner MA [facility] 2 10:02:31 Date Recorded Body height Body mass index (BMI) Body weight Heart rate Oxygen saturation Oxygen saturation in Arterial blood by Pulse oximetry Body temperature Systolic blood pressure Diastolic blood pressure Provider Name and Address Organization Details Last Updated DateTime 5 162.56 cm 26.3 kg/m2 99341.7 3 g 93 /min 99 % 99 % 98.4 [degF] 107 mm[Hg] 71 mm[Hg] Natty Do LPN [facility] 5 15:33:55 Social History Question Answer Notes LastModified by Organizat ion Details LastModified Time Tobacco Smoking Status Never Smoker KIZZY Hathaway, [facility] 10/23/2016 08:28:18 Do You Have An Advance Directive? No Given Form On 10/23/16 [email or web address] Information not available 04/08/2020 What Is Your Level Of Alcohol Consumption? Occasional 1x Weekly Information not available 12/01/2021 Is Blood Transfusion Acceptable In An Emergency? Yes Information not available 10/23/2016 What Is Your Level Of Caffeine Consumption? Moderate Information not available 04/10/2024 How Much Tobacco Do You Chew? None Information not available 10/23/2016 Are You Currently Employed? Yes Information not available 10/23/2016 What Type Of Diet Are You Following? REGULAR Information not available 12/01/2021 Which Illicit Or Recreational Drugs Have You Used? None Information not available 10/23/2016 Do You Or Have You Ever Used E-cigarettes Or Vape? 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 With Others Dad (Lilliana holland) Information not available 10/23/2016 Do You Take Precautions To Prevent Distracted Driving? Yes Information not available 10/23/2016 How Often Do You Need To Have Someone Help You When You Read Instructions, Pamphlets, Or Other Written Material From Your Doctor Or Pharmacy? Never Information not available 10/23/2016 Have You Served In The ? No Information not available 10/23/2016 To The Best Of Your Knowledge Have You Been In Close Proximity To Any Individual Who Tested Positive For COVID-19? No Information not available 04/08/2020 What Was The Date Of Your Most Recent Tobacco Screening? 04/10/2024 Information not available 04/10/2024 How Many Children Do You Have? 0 [email or web address] Information not available 04/08/2020 Do You Use Protection During Sex? Always [email or web address] Information not available 04/08/2020 Do You Use Your Seat Belt Or Car Seat Routinely? Yes Information not available 04/10/2024 Seat Belts Used Routinely Yes Information not available 10/23/2016 Are You Sexually Active? Yes Information not available 10/23/2016 Smoke Alarm In Home Yes Information not available 10/23/2016 Do You Have Smoke And Carbon Monoxide Detectors In Your Home? Yes Information not available 04/10/2024 At What Age Did You Start Smoking Tobacco? 0 Information not available 10/23/2016 Are You Passively Exposed To Smoke? No Information not available 10/23/2016 Do You Or Have You Ever Used Smokeless Tobacco? Never Used Smokeless Tobacco [email or web address] Information not available 04/06/2019 How Much Tobacco Do You Smoke? No Information not available 10/23/2016 Do You Use Any Illicit Or Recreational Drugs? No Information not available 12/01/2021 Do You Use Sunscreen Routinely? Yes Information not available 10/23/2016 How Many Years Have You Smoked Tobacco? 0 Information not available 10/23/2016 Sex: Unknown Functional Status Question Answer Note LastModified by Organizat ion Details LastModified Time Are you able to walk? [email or web address] Information not available 12/01/2021 Are you able to care for yourself? Yes Information not available 10/23/2016 What is your exercise level? Moderate Gym 3-4x weekly Information not available 12/01/2021 Mental Status None recorded. Family History Relationship Description Onset Age of this Age Resolved Age Notes LastModified by Organization Details LastModified Time Father Arthritis Neck and back [email or web address] Not available 10/23/2016 09:00:09 Father Migraine [email or web address] Not available 10/23/2016 09:10:45 Paternal Grandfather Diabetes mellitus [email or web address] Not available 2016 09:00:20 Paternal Grandmother Diabetes mellitus [email or web address] Not available 2016 09:00:23 Paternal Grandmother Malignant tumor of breast [email or web address] Not available 2016 09:01:00 Paternal Grandmother Congestive heart failure [email or web address] Not available 2021 09:46:57 Maternal Grandmother Diabetes mellitus [email or web address] Not available 2016 09:00:29 Maternal Grandmother Malignant tumor of lung 83 Not available 04/10 15:35:40 Brother Alcohol abuse [email or web address] Not available 2016 09:02:06 Medical History Condition Response Other N Gout N Blood Diseases N Kidney Stones N Hyperthyroidism N Breast Cancer N Hypothyroidism N Lung Disease N Depression N COPD N Defects or Inherited Disease N Anesthesia Complications N Headaches/Migraines N Varicose Veins N Anxiety Disorder N Obesity N Vision or Eye Problems N Arthritis N Head Injury/Concussion N Infertility N Polyps N Congenital Anomalies N Acid Reflux (GERD) N Cancer N Stroke N ADHD N Endometriosis N High Cholesterol N Liver Disease N Fibromyalgia N Kidney Disease N Heart Problems N Ear or Hearing Problems N Hospitalizations N Thyroid Problems N GI Problems N Acne N Eating Disorder N Skin Problems N Anemia N Constipation N Bladder Problems N Mental Illness N Diabetes N Ovarian Cancer N Blood Transfusions N Seizures/Epilepsy N Tuberculosis N AIDS/HIV N Congestive Heart Failure (CHF) N Eczema N Abuse/Domestic Violence N Diverticulitis N Asthma N Allergies N Reflux/GERD N Hepatitis N Pulmonary Embolism N Hypertension N Chicken Pox N Autism Spectrum Disorder (ASD) N Osteoporosis N Gynecological History Statement/Question Response Date of Last Pap Smear 10/12/2018 Obstetrics History GPAL:G 0 P 0 0 0 0 Immunizations Vaccine Type Date Status Note Provider Name and Address Organization Details Recorded Time DTaP 03/03/19 98 completed Krista porter [facility] 11/16/2016 14:29:56 DTaP 05/13/18 99 completed Krista Valles null, [facility] 11/16/2016 14:30:01 DTaP 07/07/18 99 completed Krista Valles null, [facility] 11/16/2016 14:30:06 DTaP 06/30/19 00 completed Krista Valles null, [facility] 11/16/2016 14:30:13 DTaP 12/30/19 02 completed Krista Valles null, [facility] 11/16/2016 14:30:18 IPV 03/03/19 98 completed Krisat Valles null, [facility] 11/16/2016 14:31:21 IPV 05/13/18 99 completed Krista Valles null, [facility] 11/16/2016 14:31:26 IPV 06/30/19 00 completed Krista Valles null, [facility] 11/16/2016 14:31:30 IPV 01/01/20 03 completed Krista Valles null, [facility] 11/16/2016 14:31:34 meningococcal C conjugate 06/14/19 10 completed Krista Valles null, [facility] 11/16/2016 14:31:48 Td (adult) 06/14/19 10 completed Krista Valles null, [facility] 11/16/2016 14:35:54 MMR 03/31/19 99 completed Krista Valles null, [facility] 11/16/2016 14:36:07 MMR 01/01/20 03 completed Krista Valles null, [facility] 11/16/2016 14:36:13 Hib ([facility]) 03/03/19 98 completed Krista Valles null, [facility] 11/16/2016 14:36:25 Hib ([facility]) 05/13/18 99 completed Krista Valles null, [facility] 11/16/2016 14:36:31 Hib ([facility]) 07/07/18 99 completed Krista Valles null, [facility] 11/16/2016 14:36:36 Hib (HbOC) 03/31/19 99 completed Krista Valles null, [facility] 11/16/2016 14:36:43 varicella 06/30/19 00 completed Krista Valles null, [facility] 11/16/2016 14:36:53 Hep B, adolescent or pediatric 12/29/18 98 completed Krista Valles null, [facility] 11/16/2016 14:37:09 Hep B, adolescent or pediatric 02/03/19 98 completed Krista Valles null, [facility] 11/16/2016 14:37:13 Hep B, adolescent or pediatric 09/30/18 99 completed Krista Valles null, [facility] 11/16/2016 14:37:21 varicella 09/19/19 16 completed Natty Caporale, [employer] null, [facility] 04/10/2024 15:34:57 COVID-19, mRNA, LNP-S, PF, 30 mcg/0.3 mL dose 12/11/19 21 completed Natty Caporale, [employer] null, [facility] 04/10/2024 15:34:57 COVID-19, mRNA, LNP-S, PF, 30 mcg/0.3 mL dose 01/06/20 21 completed Natty Caporale, [employer] null, [facility] 04/10/2024 15:34:57 COVID-19, mRNA, LNP-S, PF, 30 mcg/0.3 mL dose, hoang-sucrose 07/31/19 22 completed Natty Caporale, [employer] null, [facility] 04/10/2024 15:34:57 Influenza, split virus, trivalent, PF 02/06/20 24 completed Natty Caporale, [employer] null, [facility] 04/10/2024 15:34:57 Influenza, split virus, quadrivalent, PF 11/27/19 17 cancelled patient objection Not Available [facility] 04/21/2019 02:22:07 Tdap 04/06/19 20 completed Not Available [facility] 04/21/2019 02:21:51 Past Encounters Encounter ID Performer Location Encounter Start Date Encounter Closed Date Diagnosis/Indication Diagnosis SNOMED-CT Code Diagnosis ICD10 Code Diagnosis Note [id number] Kelly Chamberlain Main Office [address] [facility] [address] [place] [address] 10/23/2016 08:14:21 10/23/2016 09:30:39 Adult health examination 686230836 Z00.01 Exposure t o sexually transmissible disorder 532228718 Z11.3 Foot pain 16437106 M79.6 71 Eczema 00876610 L30.9 Abdominal pain 30359987 R10.9 Hyperlipidemia 55839409 E78.5 Fatigue 39052444 R53.83 Unintentio nal weight loss 346719200 R63.4 Migraine 27917328 G43.90 9 [id number] Parviz Balbuena MD Main Office [address] [address] [place] [address] 11/26/2016 12:42:39 11/26/2016 13:16:29 Immunization refused 055332390 Z28.21 Abdominal pain 62535308 R10.9 [id number] Parviz Balbuena MD Main Office [address] [address] [place] [address] 09/23/2017 13:58:17 09/23/2017 14:46:01 Pain in eye 19036084 H57.11 Pt complainin g of R eye pain; no findings on PE other than tenderness on lid with palpation. MOst likely developing external hordeolum . Advised to place warm cloth and artificial tears eye lubricant for next couple days and RTO if there are any changes in vision, photosensi tivity ,worsening eye pain or it doesn't get better. [id number] Deana Amaral PA-C Main Office [address] [address] [place] [address] 04/06/2019 12:55:55 04/06/2019 13:43:24 Administration of viral vaccine 95163104 Z23 Adult heal th examination 289068454 Z00.00 [id number] Deana Amaral PA-C Main Office [address] [address] [place] [address] 04/08/2020 08:58:03 04/08/2020 10:05:54 Adult health examination 252148370 Z00.00 vaccines are up to date. Nausea and vomiting 1691999 R11.2 unclear if food sensitivit y/allergy. Labs will be ordered as well as GI consult. [id number] Deana Amaral PA-C Main Office [address] [facility] [address] [place] [address] 12/01/2021 09:45:33 12/01/2021 10:51:39 Adult health examination 296953607 Z00.00 vaccines are up to date. Menorrhagia 675708933 N9 2.0 Arthritis of right knee 0992781598 208734 M13.861 intermitte nt symptoms with exercise mostly. Gastroesop hageal reflux disease 665866834 K21.9 [id number] Deana Amaral PA-C Main Office [address] [facility] [address] [place] [address] 04/10/2024 14:57:47 04/10/2024 16:02:08 Adult health examination 077686116 Z00.00 vaccines are up to date. referral provided fro revenue inspector. Body mass index 25-29 - overweight 184436948 E66.3 Z68.26 discussed low calorie diet and recommende d to continue regular exercise activity 3-5 days per week. Check all labs. Screening for malignant neoplasm of cervix 025005735 Z12.4 Gastroesop hageal reflux disease 101218004 K21.9 pt. adjusted her diet and is doing better. Occasional ly takes tums and celestino. Menorrhagia 140807885 N9 2.0 Check labs. Health Concerns Section Related Observation LastModified by Organization Detai ls LastModified Time None Recorded Concern Status LastModified by Organization Details LastModified Time None Recorded Advance Directives Directive N: given form on 10/23/16 Payers Encounter Date Sequence Insurance Name Policy Number Policy Yanez Covered Member ID Yanez Member ID Guarantor Name 09/23/2017 1 [facility] ([facility] [id number] Kortney Davenport [id number] Kortney Davenport 04/06/2019 1 [facility] ([facility] [id number] Kortney Davenport [id number] Kortney Davenport 04/08/2020 1 [facility] ([facility]) [id number] Kortney Davenport [id number] Kortney Davenport 12/01/2021 1 [facility] (O) [id number] Kortney Davenport [id number] Kortney Davenport 04/10/2024 1 [employer] [facility] [facility] [id number] Kortney Davenport [id number] Kortney Davenoprt Notes Date Note Type Note Provider Name and Address Organization Details Recorded Time 09/23/2017 text/html Pt reports R eye pain x 3 d. Describes eye feeling dry and pain with blinking and closing eyes. Denies any photosensitivity or changes in vision. Pt states that pain is above and below eye. Denies any discharge, increased tears, no palpable masses, redness. Pt feels like it's swollen. H/o allergies, but no sinus tenderness, rhinorrhea, congestion present or ear pain, h/a. 3/10 in pain, more uncomfortable than painful. Denies feeling irritated or like a foreign body is present; just constant pain. Denies use of contacts or trauma to eye. Parviz Balbuena MD [address] [address], [place], [address], [facility] 09/24/2017 09:16:34 04/06/2019 text/html 23 year old fema le for annual PE. Last [employer] [facility] savannah was in the summer . Pt. is on control medicine. No prior mammograms. Paternal aunt with h/o breast CA.H/o arthritis in the R. knee due to past h/o dancing and injury.Exercise--- twice per week in the gym. Diet--- low calories.Nonsmoker. ETOH-- every other week end.No drugs., sexually active prior to 1 month with 1 male partner.. Deana Amaral PA-C [address] [address], [place], [address], [facility] 04/06/2019 13:43:15 04/08/2020 text/html Generic HPI TemplateReported bypatient.Notes:24 year old female for annual PE. Sees [employer] yearly. No issues. ON control. No medical issues. Pt. has gi issues with eating fatty foods and some dairy. Pt. has long standing h/o nausea and vomiting. NO prior GI work up. H.Pylori was normal in 2017 as well as TTG. Pt. is interested in seeing GI for consultation. Has limitations on what she can eat.BMI is at 22. EXercise-- 3 times weekly. Gained 11 lbs since April.Nonsmoker. ETOH- once per week , 1 drink.PHQ score is normal. Deana Amaral PA-C [address] [address], [place], [address], [facility] 04/08/2020 10:11:06 12/01/2021 text/html Generic HPI TemplateReported bypatient.Notes:25 year old female for annual PE. Sees [employer] , had normal PapSmear recently.. H/o heavy menses and c/o fatigue. NO prior h/o anemia. Vaccines: up to date on COVID vaccine and booster, Tdap and flu vaccine.GERD. Occasional symptoms. Takes Tums.Cough episodes most around boyfriend's house . PT. thinks she might be allergic to his cat. Takes Zyrtec daily. NO wheezing, shortness of breath or past h/o asthma.PHQ and DAVON scores are 0. Deana Amaral PA-C [address] [facility] [address], [place], [address], [facility] 12/01/2021 10:58:02 04/10/2024 text/html Generic HPI TemplateReported bypatient.Notes:28 year old female for annual wellness visit. Last see in 2021.Sees [employer] , had normal Pap Smear in 2021. Has savannah coming up. Vaccines: up to date on COVID vaccine and booster, Tdap in 2019. Pt. also had flu vaccines in January.GERD. Occasional symptoms. Takes Tums or celestino chews. H/o menorrhagia and anemia in the past. Pt. reports heavy flow first 2 days. Did not do well on estrogen , gained weight. Iron caused constipation. PHQ and DAVON scores are 0. BMI is at 26.3. Pt. reports exercising at least 3 times per week in the gym. Lost 10 since she started that in October. Deana Amaral PA-C [address] [facility] [address], [place], [address], [facility] 04/10/2024 16:05:01 OBGyn Episode No OBEpisode recorded.
== END 2024-06-06 14:07 | disposition home or self-care (01) ==
DX: S60.519A Abrasion of unspecified hand, initial encounter (principal); W55.03XA Scratched by cat, initial encounter
CPT/HCPCS: 99203